=== PATIENT | female | born 1990 | race Caucasian/White ===

== ENCOUNTER 2017-11-19 08:48 | Emergency (ER) | payer OTHER ==
[~2017-11-19] VITALS: Ht 165.1 cm; Wt 65.8 kg
[2017-11-19] MEDS ORDERED: ACETAMINOPHEN 325 MG TABLET ONE (09:14)
[2017-11-19] MEDS ORDERED: ACETAMINOPHEN 325 MG TABLET PO ONE (09:30)
[2017-11-19] MEDS ORDERED: IBUPROFEN 400 MG TABLET PO ONE (10:00)
[2017-11-19] MEDS ORDERED: IBUPROFEN 400 MG TABLET ONE (10:00)
[2017-11-19 11:00] VITALS: BP 122/87
== END 2017-11-19 11:18 | disposition home or self-care (01) ==
LOC: ER 08:50
DX: M54.2 Cervicalgia (principal); M54.5 Low back pain; R51 Headache; V49.49XA Driver injured in collision with other motor vehicles in traffic accident, initial encounter; Y92.413 State road as the place of occurrence of the external cause; Y93.89 Activity, other specified; Y99.8 Other external cause status
CPT/HCPCS: 70450-TC; 72125-TC; 84703-TC; A4606; L0172; Z7610